=== PATIENT | male | born 1985 | race Caucasian/White ===

== ENCOUNTER 2018-08-17 19:24 | Emergency (ER) | END 2018-08-17 22:46 | disposition home or self-care (01) ==

== ENCOUNTER 2018-11-23 08:45 | Emergency (ER) | payer SELFPAY ==
[~2018-11-23] VITALS: Ht 167.6 cm; Wt 83.0 kg
[~2018-11-23 08:45] MED LIST: CEPH-443 PO; NAPR-985 PO
[2018-11-23 08:49] VITALS: BP 154/96; PULSE 74; RESP 19; Ht 167.6 cm; Wt 83.0 kg
[2018-11-23] MEDS ORDERED: LIDOCAINE 1% (MPF) 5 ML VIAL INJ ONE (09:30)
[2018-11-23] MEDS ORDERED: CEPH-443 PO (10:01)
[2018-11-23] MEDS ORDERED: HYDR-4011 PO (10:01)
[2018-11-23] MEDS ORDERED: NAPR-985 PO (10:01)
--- NOTE | 2018-11-23 10:37 | ERD ---
ER Documentation Chief Complaint Chief Complaint left thumb and index finger laceration HPI 33-year-old male presenting with pain to his left thumb. Patient was cutting a piece of wood earlier and cut himself with a saw. He is right-hand dominant. Last tetanus shot was 2 years ago. He denies any numbness or tingling has not use any medications for the pain. Denies other medical problems. NKDA. Surgical history denies. Social history denies ROS All systems reviewed and are negative except as per history of present illness. Medications Home Meds Active Scripts Naproxen* (Naprosyn*) 500 Mg Tablet, 500 MG PO BID PRN for PAIN AND/OR IN FLAMMATION, #30 TAB Prov:BRENDA LORD PA-C 11/23/18 Hydrocodone/Acetaminophen ([place] 5-325 Tablet) 1 Each Tablet, 1 TAB PO Q6H PRN for PAIN, #7 TAB Prov:BRENDA LORD PA-C 11/23/18 Cephalexin* (Keflex*) 500 Mg Capsule, 500 MG PO QID for 7 Days, CAP Prov:BRENDA LORD PA-C 11/23/18 Cephalexin* (Keflex*) 500 Mg Capsule, 500 MG PO QID for 7 Days, CAP Prov:BRENDA LORD PA-C 08/17/18 Naproxen* (Naprosyn*) 500 Mg Tablet, 500 MG PO BID PRN for PAIN AND/OR INFLAMMATION, #30 TAB Prov:BRENDA LORD PA-C 08/17/18 Allergies Allergies: Coded Allergies: No Known Allergy (Unverified , 08/17/18) PMhx/Soc Medical and Surgical Hx: pt denies Medical Hx, pt denies Surgical Hx Hx Alcohol Use: Yes (social) Hx Substance Use: No Hx Tobacco Use: No Smoking Status: Never smoker FmHx Family History: No diabetes, No coronary disease, No other Physical Exam Vitals Vital Signs Date Temp Pulse Resp B/P (MAP) Pulse Ox O2 O2 Flow FiO2 Time Delivery Rate 11/23/18 97.8 74 19 154/96 97 08:49 (115) Physical Exam GENERAL: The patient is well-appearing, well-nourished, in no acute distress CHEST: Clear to auscultation bilaterally. There are no rales, wheezes or rh onchi. HEART: Regular rate and rhythm. No murmurs, clicks, rubs or gallops. No S3 or S4. EXTREMITIES: Patient is able to isolate at the DIP and PIP joint of the left digits. No obvious deformity. No crepitus on exam. Strength 5 out of 5 with flexion and extension NEUROLOGIC: Neurovascularly intact to left distal fingers. Normal range of motion. Pulses intact. SKIN: Skin avulsion noted to the pad of the left thumb with area of laceration. Lacerations approximately 1 cm. Patient also has skin abrasion to left index finger on the dorsal aspect at the DIP joint. No laceration. Results 24 hrs Current Medications Medications Dose Sig/Ana Start Time Status Last (Trade) Ordered Route PRN Stop Time Admin Dose Reason Admin Lidocaine 5 ml ONCE ONCE 11/23/18 DC (Xylocaine INJ 09:30 1% (Mpf)) 11/23/18 09:31 Procedures/MDM DIAGNOSTIC IMAGING REPORT Patient: ZHAO WESTFALL : 1985 Age: 33 Sex: M MR #: [id number] DOS: 11/23/18 0901 Ordering MD: CORTEZ LORD PA-C Location: [facility] Room/Bed: PROCEDURE: XR Thumb. CLINICAL INDICATION: Left thumb pain . Laceration. TECHNIQUE: Three views of the left thumb are available for review. COMPARISON: None available FINDINGS: The osseous structures, articular spaces, and surrounding soft tissues of the left thumb are normal. No acute fracture or dislocation is seen. No radiopaque foreign body is identified. IMPRESSION: 1. Unremarkable left thumb x-ray series. ER Course: Bupivacaine injected into left thumb. Digital block. Site was adequately anesthetized. On reevaluation after cleaning with normal saline laceration was superficial and Dermabond was applied. Prior to Dermabond application silver nitrate stick was used to prevent oozing of blood. Patient tolerated procedure well. Dermabond was applied over the silver nitrate. Bacitracin and Band-Aid was applied to abrasion to left index finger. MDM: 33-year-old male presenting with laceration and abrasion to left thumb and index finger. I have low suspicion for tendon or ligament rupture. I have low suspicion for neuro deficit. Patient did not require suturing as cut was superficial. I have low suspicion for bone involvement as x-ray is within norm al limits. Patient is up-to-date on tetanus shot. Patient is discharged stricter precautions and told to follow-up with primary care within 1-2 days for close evaluation. Patient is told symptoms change or worsen to return immediately to the ER. All questions answered at discharge Departure Diagnosis: Primary Impression: Laceration Condition: Stable Patient Instructions: Laceration, Hand Referrals: [facility] YOU HAVE RECEIVED A MEDICAL SCREENING EXAM AND THE RESULTS INDICATE THAT YOU DO NOT HAVE A CONDITION THAT REQUIRES URGENT TREATMENT IN THE EMERGENCY DEPARTMENT. FURTHER EVALUATION AND TREATMENT OF YOUR CONDITION CAN WAIT UNTIL YOU ARE SEEN IN YOUR DOCTORS OFFICE WITHIN THE NEXT 1-2 DAYS. IT IS YOUR RESPONSIBILITY TO MAKE AN APPOINTMENT FOR FOLOW-UP CARE. IF YOU HAVE A PRIMARY DOCTOR --you should call your primary doctor and schedule an appointment IF YOU DO NOT HAVE A PRIMARY DOCTOR YOU CAN CALL OUR PHYSICIAN REFERRAL HOTLINE AT IF YOU CAN NOT AFFORD TO SEE A PHYSICIAN YOU CAN CHOSE FROM THE FOLLOWING [facility] [address] [facility]. [facility] [address] [facility] [facility] [address] [facility] [facility] [address] [facility] [facility] [address] [facility] [facility]. [address] Additional Instructions: FOLLOW UP WITH YOUR PRIMARY CARE PHYSICIAN TOMORROW.Return to this facility if you are not improving as expected. BRENDA LORD PA-C Nov 23, 2018 10:37
== END 2018-11-23 10:14 | disposition home or self-care (01) ==
LOC: FTE 08:45
DX: S61.012A Laceration without foreign body of left thumb without damage to nail, initial encounter (principal); S60.411A Abrasion of left index finger, initial encounter; W26.8XXA Contact with other sharp object(s), not elsewhere classified, initial encounter; Y92.9 Unspecified place or not applicable
CPT/HCPCS: 73140

== ENCOUNTER 2019-03-30 19:04 | Emergency (ER) | payer MEDICAID ==
[~2019-03-30] VITALS: Ht 167.6 cm; Wt 83.0 kg
[~2019-03-30 19:04] MED LIST changes: +HYDR-4011 PO
[2019-03-30 19:07] VITALS: BP 135/89; PULSE 74; RESP 20; Ht 167.6 cm; Wt 83.0 kg
[2019-03-30] MEDS ORDERED: HYDROCODONE/APAP (10/325) TAB PO ONE (20:30)
[2019-03-30] MEDS ORDERED: IBUPROFEN 600 MG TAB PO ONE (20:30)
--- NOTE | 2019-03-30 20:33 | ERD ---
ER Documentation Chief Complaint Chief Complaint LT testicular pain radiates to left lower abd x1 year worse today HPI 34-year-old male presents with complaint of left testicular pain. States that he had the pain for a year. He seen a doctor before and they said that "1 of his veins was inflamed". States that he gets flareups every now and then. His most recent flareup happened a few days ago. Says the pain is currently 10 out of 10. Sexually active with his . Denies any dysuria, hematuria, penile discharge, fevers, chills. ROS All systems reviewed and are negative except as per history of present illness. Medications Home Meds Active Scripts Hydrocodone/Acetaminophen ([place] 5-325 Tablet) 1 Each Tablet, 1 TAB PO Q6H PRN for PAIN, #10 TAB Prov:JAROCHO RAZO 03/30/19 Ibuprofen* (Motrin*) 600 Mg Tab, 600 MG PO Q6, #30 TAB Prov:JAROCHO RAZO 03/30/19 Naproxen* (Naprosyn*) 500 Mg Tablet, 500 MG PO BID PRN for PAIN AND/OR INFLAMMATION, #30 TAB Prov:BRENDA LORD PA-C 11/23/18 Hydrocodone/Acetaminophen ([place] 5-325 Tablet) 1 Each Tablet, 1 TAB PO Q6H PRN for PAIN, #7 TAB Prov:BRENDA LORD PA-C 11/23/18 Cephalexin* (Keflex*) 500 Mg Capsule, 500 MG PO QID for 7 Days, CAP Prov:BRENDA LORD PA-C 11/23/18 Cephalexin* (Keflex*) 500 Mg Capsule, 500 MG PO QID for 7 Days, CAP Prov:BRENDA LORD PA-C 08/17/18 Naproxen* (Naprosyn*) 500 Mg Tablet, 500 MG PO BID PRN for PAIN AND/OR INFLAMMATION, #30 TAB Prov:BRENDA LORD PA-C 08/17/18 Allergies Allergies: Coded Allergies: No Known Allergy (Unverified , 08/17/18) PMhx/Soc Medical and Surgical Hx: pt denies Medical Hx, pt denies Surgical Hx History of Surgery: No Hx Neurological Disorder: No Hx Respiratory Disorders: No Hx Cardiac Disorders: No Hx Psychiatric Problems: No Hx Miscellaneous Medical Probl: No Hx Alcohol Use: Yes (social) Hx Substance Use: No Hx Tobacco Use: No Smoking Status: Never smoker FmHx Family History: No diabetes, No coronary disease, No other Physical Exam Vitals Vital Signs Date Temp Pulse Resp B/P (MAP) Pulse Ox O2 O2 Flow FiO2 Time Delivery Rate 03/30/19 97.3 74 20 135/89 98 19:07 (104) Physical Exam Const: No acute distress Head: Atraumatic Eyes: Normal Conjunctiva ENT: Normal External Ears, Nose and Mouth. Neck: Full range of motion. No meningismus. Resp: Clear to auscultation bilaterally Cardio: Regular rate and rhythm, no murmurs Abd: Soft, non tender, non distended. Normal bowel sounds Skin: No petechiae or rashes Back: No midline or flank tenderness Ext: No cyanosis, or edema Neur: Awake and alert Psych: Normal Mood and Affect : Testicles are nonedematous or tender to palpation with normal lay. Scrotum is not edematous or erythematous. There are no hernias noted. Results 24 hrs Laboratory Tests Test 03/30/19 20:36 Urine Color YELLOW Urine Clarity CLEAR Urine pH 5.0 Urine Specific [place] 1.019 Urine Ketones NEGATIVE mg/dL Urine Nitrite NEGATIVE mg/dL Urine Bilirubin NEGATIVE mg/dL Urine Urobilinogen NEGATIVE mg/dL Urine Leukocyte Esterase NEGATIVE Mendoza/ul Urine Hemoglobin NEGATIVE mg/dL Urine Glucose NEGATIVE mg/dL Urine Total Protein NEGATIVE mg/dl Current Medications Medications Dose Sig/Ana Start Time Status Last (Trade) Ordered Route PRN Stop Time Admin Dose Reason Admin 1 tab ONCE ONCE 03/30/19 DC 03/30/19 Acetaminophen PO 20:30 20:34 / 03/30/19 20:31 Hydrocodone Bitart ([place] (10/325)) Ibuprofen 600 mg ONCE ONCE 03/30/19 DC 03/30/19 (Motrin) PO 20:30 20:33 03/30/19 20:31 1,000 mg ONCE ONCE 03/30/19 Azithromycin PO 22:30 (Zithromax) 03/30/19 22:31 Ceftriaxone 250 mg ONCE ONCE 03/30/19 Sodium IM 22:30 (Rocephin) 03/30/19 22:31 Lidocaine 5 ml ONCE ONCE 03/30/19 (Xylocaine INJ 22:30 1% (Mpf)) 03/30/19 22:31 Procedures/MDM DIAGNOSTIC IMAGING REPORT Patient: ZHAO WESTFALL : 1985 Age: 34 Sex: M MR #: [id number] DOS: 03/30/192025 Ordering MD: JAROCHO RAZO Location: [facility] Room/Bed: PROCEDURE: US Scrotum. CLINICAL INDICATION: Left testicular pain TECHNIQUE: Multiple sonographic images of the scrotal region were obtained utilizing a linear array transducer with grayscale and color-flow and a Doppler imaging. The images were reviewed on a high-resolution PACS workstation. COMPARISON: None FINDINGS: The right testicle is well visualized and has a normal echotexture. The right testicle measures 4.2 x 3.3 x 2.0 cm. There is normal blood flow on color-flow imaging. Doppler arterial waveforms are normal. The right epididymis is visualized and unremarkable in appearance. There is no evidence of hyperemia on color flow imaging. The left testicle is well visualized and has a normal echotexture.The left testi elena measures 4.2 x 3.3 x 2.0 cm. There is normal testicular blood flow on color flow imaging. Doppler arterial waveforms are normal. The left epididymis is visualized and is unremarkable in appearance. Blood flow is normal on color-flow imaging. The scrotal wall is unremarkable, without swelling or edema. No other incidental abnormality is identified. There is no significant fluid around either testicle. IMPRESSION: 1. Unremarkable testicular ultrasound. In particular there is no evidence of epididymitis, orchitis, testicular mass, or testicular torsion. RPTAT:AAJJ Physician Melody Date Time Electronically viewed and signed by Physician Melody on 03/30/2019 21:13 GW/ CC: JAROCHO RAZO [phone] MDM: Given patient's complaint there was concern for possible orchitis, epididymitis, versus testicular torsion therefore ultrasound was performed. Results within normal limits. In addition UA was within normal limits. Given the chronic nature of the patient's problem there is concern for possible undetected epididymitis or orchitis secondary to STD. Therefore patient will be treated for STD in the ER. Patient discharged with pain medication. I low suspicion for testicular torsion or any other emergent condition. Patient discharged with strict ER precautions. Patient advised to follow up with PMD. All questions answered at discharge. Departure Diagnosis: Primary Impression: Testicular pain Condition: Stable JAROCHO RAZO March 30, 2019 20:33
[2019-03-30] MEDS ORDERED: IBUP-1542 PO (22:24)
[2019-03-30] MEDS ORDERED: HYDR-4011 PO (22:24)
[2019-03-30] MEDS ORDERED: AZITHROMYCIN 500 MG TAB PO ONE (22:30)
[2019-03-30] MEDS ORDERED: LIDOCAINE 1% (MPF) 5 ML VIAL INJ ONE (22:30)
[2019-03-30] MEDS ORDERED: CEFTRIAXONE 250 MG INJ IM ONE (22:30)
== END 2019-03-30 22:47 | disposition home or self-care (01) ==
LOC: FTE 19:04
DX: N50.812 Left testicular pain (principal)
CPT/HCPCS: 76870; 81003; 87591; 96372; J0696; Z7502; Z7610